=== PATIENT | male | born 1975 | race Caucasian/White ===

== ENCOUNTER 2016-12-17 12:33 | Emergency (ER) | payer SELFPAY ==
[~2016-12-17] VITALS: Ht 180.3 cm; Wt 90.0 kg
[2016-12-17 12:34] VITALS: TEMP 36.3; Ht 180.3 cm; Wt 90.0 kg
[2016-12-17] MEDS ORDERED: IBUPROFEN 600 MG TAB PO STA (13:09)
[2016-12-17] MEDS ORDERED: SODIUM CHLORIDE 0.9% 1000ML 500 ML IV STA (13:09)
--- NOTE | 2016-12-17 13:46 | DIAGNOSTIC IMAGING REPORT ---
SINGLE VIEW CHEST CLINICAL HISTORY: Atypical chest pain. FINDINGS: An AP, portable, upright chest radiograph is obtained. No prior studies are available for comparison at the time of dictation. The cardiomediastinal silhouette is unremarkable. An accessory azygous fissure is incidentally noted. The lungs and pleural spaces are clear. No pneumothorax is seen. The bony thorax is grossly intact. IMPRESSION: No active disease in the chest. Electronically signed by: Curtis Mosley M.D. 12/17/2016 1:44 PM Dictated Date/Time: 12/17/2016 1:44 PM
--- NOTE | 2016-12-17 13:47 | DIAGNOSTIC IMAGING REPORT ---
THORACIC SPINE 3 VIEWS CLINICAL HISTORY: Thoracic back pain. FINDINGS: AP, lateral, and swimmer's views of the thoracic spine are obtained. No prior studies are available for comparison at the time of dictation. The skeletal structures are well mineralized. There is no radiographic evidence of fracture or malalignment. Vertebral body height and alignment are maintained throughout the thoracic spine. The transverse processes and pedicles are grossly intact as seen on the frontal view. The intervertebral disc spaces are preserved. The lung parenchyma is clear as imaged. An accessory azygous fissure is incidentally noted. IMPRESSION: No acute bony abnormality is identified in the thoracic spine. Electronically signed by: Curtis Mosley M.D. 12/17/2016 1:46 PM Dictated Date/Time: 12/17/2016 1:45 PM
[2016-12-17] MEDS ORDERED: OPTIRAY 320 IV PRN (14:00)
[2016-12-17 14:15] LABS: HEMATOCRIT 44.9 % (42-52); MEAN CORPUSCULAR HEMOGLOBIN 28.6 pg (25-34); MEAN CORPUSCULAR HGB CONC 33.6 g/dl (32-36); MEAN PLATELET VOLUME 9.2 fL (7.4-10.4); PLATELET COUNT 256 K/uL (130-400); RED BLOOD COUNT 5.28 M/uL (4.7-6.1); WHITE BLOOD COUNT 6.28 K/uL (4.8-10.8)
[2016-12-17 14:33] LABS: BLOOD UREA NITROGEN 23 mg/dl (7-18); BUN/CREATININE RATIO 17.8 (10-20); CALCIUM 9.2 mg/dl (8.5-10.1); CARBON DIOXIDE 26 mmol/L (21-32); CHLORIDE 107 mmol/L (98-107); GLUCOSE 86 mg/dl (70-99); POTASSIUM 3.8 mmol/L (3.5-5.1); SODIUM 143 mmol/L (136-145)
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
--- NOTE | 2016-12-17 15:19 | DIAGNOSTIC IMAGING REPORT ---
CT ANGIOGRAM OF THE CHEST CLINICAL HISTORY: Chest pain and back pain and left arm pain. COMPARISON STUDY: Chest x-ray dated 12/17/2016 TECHNIQUE: Following the IV administration of 87 mL of Optiray-320, CT angiogram of the thorax was performed from the thoracic inlet to the lung bases utilizing the pulmonary embolus protocol. Images are reviewed in the axial, sagittal, and coronal planes. IV contrast was administered without complication. MIP imaging was performed. CT DOSE: 285.67 mGy.cm FINDINGS: No pathologically enlarged axillary mediastinal or hilar lymph nodes were visualized. There was no evidence of thoracic aortic dilatation. There were no pulmonary artery filling defects to indicate acute pulmonary embolism. No pleural effusions are visualized. There was no evidence of focal pulmonary consolidation. There is an azygos fissure. IMPRESSION: 1. No acute intrathoracic findings. No evidence of acute pulmonary embolism. No evidence of focal pulmonary consolidation. Electronically signed by: Juan Cabral M.D. 12/17/2016 3:17 PM Dictated Date/Time: 12/17/2016 3:14 PM
[2016-12-17 15:52] LABS: LYME DISEASE AB IGG NEG (NEG); LYME DISEASE AB IGM NEG (NEG)
[2016-12-17 16:50] VITALS: BP 136/91; PULSE 67; O2SAT 97
== END 2016-12-17 16:50 | disposition home or self-care (01) ==
LOC: C.EDB 12:34 → C.EDC 16:50
DX: M54.6 Pain in thoracic spine (principal); Z87.891 Personal history of nicotine dependence; Z83.2 Family history of diseases of the blood and blood-forming organs and certain disorders involving the immune mechanism; Z82.3 Family history of stroke; Z83.3 Family history of diabetes mellitus; Z82.49 Family history of ischemic heart disease and other diseases of the circulatory system